=== PATIENT | female | born 1970 | race African-American/Black ===

== ENCOUNTER 2016-12-29 16:04 | Emergency (ER) | payer OTHER ==
[2016-12-29] MEDS ORDERED: ASPIRIN CHEW 81 MG TABLET PO STA (16:27)
--- NOTE | 2016-12-29 16:31 | ED Physician Documentation ---
PD HPI CHEST PAIN - Stated complaint Stated Complaint: CP/SOA - Chief complaint Chief Complaint: Cardiac - History obtained from History obtained from: Patient - History of Present Illness Timing - onset: Other (46-year-old woman without history of heart disease and no pertinent family history developed sharp chest pain while driving at 1 PM that over time became dull and briefly had numbness around the left elbow and also noted some pain on the anterior posterior side of the left knee. She is not short of breath but she feels a little out of it and dizzy. No recent travel or leg swelling. No cough or hemoptysis.) Review of Systems Constitutional: reports: Reviewed and negative Nose: reports: Reviewed and negative Cardiac: reports: Chest pain / pressure. 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 - Allergies Allergies/Adverse Reactions: Allergies Allergy/AdvReac Type Severity Reaction Status Date / Time Latex, Natural Rubber Allergy Rash Verified 12/29/16 16:12 neomycin Allergy Rash Verified 12/29/16 16:12 - Social History Does the pt smoke?: No Smoking Status: Never smoker Does the pt drink ETOH?: No Does the pt have substance abuse?: No PD ED PE NORMAL - Vitals Vital signs reviewed: Yes - General General: Alert and oriented X 3, No acute distress - HEENT HEENT: PERRL, EOMI - Neck Neck: Supple, no meningeal sign, No bony TTP, No bruit - Cardiac Cardiac: RRR, No murmur - Respiratory Respiratory: No respiratory distress, Clear bilaterally - Abdomen Abdomen: Normal bowel sounds, Soft, Non tender - Derm Derm: Normal color, Warm and dry - Extremities Extremities: No edema, No calf tenderness / cord - Neuro Neuro: Alert and oriented X 3, Normal speech - Psych Psych: Normal mood, Normal affect Results - Vitals Vitals: Vital Signs - 24 hr 12/29/16 12/29/16 12/29/16 16:08 16:25 16:31 Temperature 36.2 C L Heart Rate 70 68 72 Respiratory 18 16 16 Rate Blood Pressure 128/77 142/87 H 146/76 H O2 Saturation 99 99 98 12/29/16 12/29/16 17:05 17:44 Temperature Heart Rate 66 68 Respiratory 19 21 Rate Blood Pressure 130/75 126/58 L O2 Saturation 98 99 Oxygen O2 Source Room air - EKG (time done) 1621 Rate: Rate (enter#) (70) Rhythm: NSR [place]: Normal Intervals: Normal [place] QRS: Normal Ischemia: Non specific changes (Flat inferior T waves). No: ST elevation c/w ischemia Compare to prior EKG: Old EKG unavailable Computer interpretation: Agree with computer - Labs Labs: Laboratory Tests 12/29/16 12/29/16 12/29/16 16:37 16:37 16:37 WBC 7.9 RBC 4.11 L Hgb 11.5 L Hct 35.5 L MCV 86.4 MCH 28.1 MCHC 32.5 RDW 14.2 Plt Count 329 MPV 8.1 Neut # 3.5 Lymph # 3.3 [place] # 0.6 Eos # 0.4 Baso # 0.0 Absolute Nucleated RBC 0.00 Nucleated RBC % 0.0 D-Dimer 332.7 H Sodium 134 L Potassium 3.7 Chloride 103 Carbon Dioxide 24 Anion Gap 7.0 BUN 15 Creatinine 0.8 Estimated GFR (MDRD) 93 Glucose 91 Calcium 9.1 Total Bilirubin 0.4 AST 24 ALT 20 Alkaline Phosphatase 58 Troponin I Total Protein 7.5 Albumin 3.9 Globulin 3.6 Albumin/Globulin Ratio 1.1 Lipase 37 12/29/16 16:37 WBC RBC Hgb Hct MCV MCH MCHC RDW Plt Count MPV Neut # Lymph # [place] # Eos # Baso # Absolute Nucleated RBC Nucleated RBC % D-Dimer Sodium Potassium Chloride Carbon Dioxide Anion Gap BUN Creatinine Estimated GFR (MDRD) Glucose Calcium Total Bilirubin AST ALT Alkaline Phosphatase Troponin I < 0.04 Total Protein Albumin Globulin Albumin/Globulin Ratio Lipase PD MEDICAL DECISION MAKING - ED course ED course: 46-year-old woman with atypical chest pain, nonischemic EKG. Heart score of 1 for BMI. D-dimer slightly elevated and this was followed with a CT angiogram of the chest which was negative. The patient was counseled as to the diagnosis and need for follow-up. I counseled the patient with regard to signs and symptoms that would necessitate an urgent reevaluation in the emergency department. They understand they are welcome to return at any time if worse or if not improving as expected. This document was made in part using voice recognition software. While efforts are made to proofread this documents, sound alike and grammatical errors may occur. Departure - Departure Disposition: 01 Home, Self Care Clinical Impression: Atypical chest pain Condition: Good Record reviewed to determine appropriate education?: Yes Instructions: ED Chest Pain Atypical Unkn Cause Comments: Return immediately if worse or if new symptoms develop. Take a baby aspirin every day until you follow-up with your doctor. Do follow-up with your doctor, next available appointment, discuss stress testing.
[2016-12-29] MEDS ORDERED: SODIUM CHLORIDE FLUSH 0.9% 10 ML SYRINGE IVP ONE (16:34)
[2016-12-29 16:46] LABS: BASOPHILS % (AUTO) 0.5 %; EOSINOPHILS # (AUTO) 0.4 10^3/uL (0.0-0.7); EOSINOPHILS % (AUTO) 5.7 %; HCT - HEMATOCRIT 35.5 % (37.0-47.0); HGB - HEMOGLOBIN 11.5 g/dL (12.0-16.0); LYMPHOCYTES # (AUTO) 3.3 10^3/uL (1.5-3.5); MEAN CORPUSCULAR HEMOGLOBIN 28.1 pg (27.0-31.0); MEAN CORPUSCULAR HGB CONC 32.5 g/dL (32.0-36.0); MEAN CORPUSCULAR VOLUME 86.4 fL (81.0-99.0); MEAN PLATELET VOLUME 8.1 fL (7.9-10.8); MONOCYTES # (AUTO) 0.6 10^3/uL (0.0-1.0); MONOCYTES % (AUTO) 7.3 %; NEUTROPHILS # (AUTO) 3.5 10^3/uL (1.5-6.6); NEUTROPHILS % (AUTO) 44.5 %; RED BLOOD COUNT 4.11 10^6/uL (4.20-5.40); RED CELL DISTRIBUTION WIDTH 14.2 % (12.0-15.0); UNCORRECTED WHITE BLOOD COUNT 7.9 x10^3/uL; WHITE BLOOD COUNT 7.9 x10^3/uL (4.8-10.8)
--- NOTE | 2016-12-29 16:56 | XRAY Preliminary Report ---
Exam: XR CHEST 1 VIEW IMPRESSION: No acute disease. [facility] SITE ID: [id number]
--- NOTE | 2016-12-29 16:58 | XRAY Report ---
EXAM: CHEST RADIOGRAPHY EXAM DATE: 12/29/2016 04:48 PM. CLINICAL HISTORY: Chest pain. COMPARISON: None. TECHNIQUE: 1 view. FINDINGS: Lungs/Pleura: Clear. No effusion or pneumothorax. Mediastinum: Within exam limitations, the cardiomediastinal contour is normal. Upper lobe vessels not distended. Other: Calcific periarthritis of right shoulder. IMPRESSION: No acute disease. [facility] Referring Provider Line: [phone] SITE ID: [id number]
[2016-12-29 16:59] LABS: ALBUMIN/GLOBULIN RATIO 1.1 (1.0-2.2); BILIRUBIN,TOTAL 0.4 mg/dL (0.2-1.0); CALCIUM 9.1 mg/dL (8.5-10.3); CREATININE 0.8 mg/dL (0.4-1.0); POTASSIUM 3.7 mmol/L (3.5-5.0); TOTAL PROTEIN 7.5 g/dL (6.7-8.2)
[2016-12-29] MEDS ORDERED: ASPIRIN CHEW 81 MG TABLET ONE (17:01)
[2016-12-29] MEDS ORDERED: IOPAMIDOL-300 100 ML VIAL IVP ONE ×2 (17:10→17:31)
[2016-12-29] MEDS ORDERED: IOPAMIDOL-300 100 ML VIAL ONE (17:10)
[2016-12-29 17:45] VITALS: BP 126/58
--- NOTE | 2016-12-29 17:49 | CT Preliminary Report ---
Exam: CT CHEST ANGIO (PE) IMPRESSION: Normal pulmonary CT angiogram. No pulmonary emboli. [facility] SITE ID: [id number]
[2016-12-29] MEDS ORDERED: MAG HYDROX/AL HYDROX/SIMETH 30 ML UDC PO STA (17:53)
[2016-12-29] MEDS ORDERED: LIDOCAINE VISCOUS 2% 15 ML UDC MM STA (17:53)
[2016-12-29] MEDS ORDERED: LIDOCAINE VISCOUS 2% 15 ML UDC MM ONE (18:00)
[2016-12-29] MEDS ORDERED: MAG HYDROX/AL HYDROX/SIMETH 30 ML UDC ONE (18:00)
--- NOTE | 2016-12-29 18:12 | CT Report ---
EXAM: CT ANGIOGRAM CHEST EXAM DATE: 12/29/2016 05:31 PM. CLINICAL HISTORY: Chest pain, high d-Dimer. COMPARISON: 12/29/2016. TECHNIQUE: Routine helical imaging was performed through the chest in the pulmonary arterial phase. I V Contrast: 57 mL Isovue-300. Reconstructions: Coronal 3-D MIP reconstructions.Sagittal and coronal. In accordance with CT protocol optimization, one or more of the following dose reduction techniques w ere utilized for this exam: automated exposure control, adjustment of mA and/or KV based on patient s ize, or use of iterative reconstructive technique. FINDINGS: Pulmonary Arteries: Diagnostic quality: Adequate through the segmental arteries. No evidence for acute or chronic pulmona ry emboli. RV/LV is within normal limits. There is no interventricular septal bowing. There is no reflux of cont rast material in the IVC. Lungs/Pleura: No consolidation, nodules, or edema. No effusions or pneumothorax. Mediastinum: Normal. No cardiac enlargement or adenopathy. Thoracic Aorta: Unremarkable. Upper Abdomen: Unremarkable. Other: None. IMPRESSION: Normal pulmonary CT angiogram. No pulmonary emboli. [facility] Referring Provider Line: [phone] SITE ID: [id number]
== END 2016-12-29 18:17 | disposition home or self-care (01) ==
LOC: ED 16:04
DX: R07.89 Other chest pain (principal)
CPT/HCPCS: 36415; 71010; 71275; 80053; 83690; 84484; 85025; 85379; 93005; 99284; A9270; Q9967

== ENCOUNTER 2017-08-16 14:56 | Outpatient (CLI) | payer OTHER ==
--- NOTE | 2017-08-18 17:44 | Ultrasound Report ---
TRANSVAGINAL ULTRASOUND: 08/16/2017 HISTORY: Abnormal uterine bleeding. LAST MENSTRUAL PERIOD: 08/09/2017 TECHNIQUE: Real-time scanning by the chemical sprayer using the transvaginal approach only. Saved static images reviewed. FINDINGS UTERUS: Enlarged diffusely heterogenous myomatous changes, 12.7 x 8.8 x 9.9 cm , volume 578 mL, anteverted configuration. Endometrial echo thickness 11.5 mm. Difficult to tell if there is mass effect on the endometrium due to limited visualization. RIGHT OVARY: 3.3 x 2.2 x 2.1 cm, volume 7.9 mL. Cyst 1.5 x 1.4 x 2.1 cm. LEFT OVARY: 1.8 x 1.2 x 1.0 cm, volume 1.1 mL. Normal appearance. FREE FLUID: None. IMPRESSION: ENLARGED MYOMATOUS UTERUS, VOLUME 578 ML. ENDOMETRIAL ECHO THICKNESS 11.5 MM. DIFFICULT TO DETERMINE IF THERE IS MASS EFFECT BY FIBROIDS ON THE ENDOMETRIAL ECHO. TD: 08/16/2017 16:07 [email or web address]
== END 2017-08-16 14:57 | disposition home or self-care (01) ==
LOC: DI 14:56
PROVIDERS: ATTEND Internal Medicine
DX: N93.9 Abnormal uterine and vaginal bleeding, unspecified (principal); Z12.79 Encounter for screening for malignant neoplasm of other genitourinary organs; N85.2 Hypertrophy of uterus
CPT/HCPCS: 76830

== ENCOUNTER 2018-09-06 15:56 | Outpatient (CLI) | payer OTHER ==
--- NOTE | 2018-09-12 14:03 | Mammography Report ---
Reason: SCREEN MAMMO Procedure Date: 09/06/2018 Accession Number: [id number] / [id number] Procedure: KETAN - Screening Mammo w/Ralph CPT Code: FULL RESULT: EXAM: Screening Mammo w/Ralph DATE: 09/06/2018 4:29 PM CLINICAL HISTORY: Routine screening TECHNIQUE: (B) - Bilateral CC and MLO views were obtained. COMPARISON: 02/13/2018, 12/21/2016, 01/23/2015 and 10/22/2013. PARENCHYMAL PATTERN: (A) - The breasts demonstrate scattered fibroglandular densities bilaterally. FINDINGS: No significant interval change. There are no suspicious masses, calcifications, or areas of distortion. The right CC and left MLO projections are technically suboptimal. The patient will be recalled for [facility] medical repeat. IMPRESSION: Incomplete examination. BI-RADS category 0. Repeat right CC and left MLO projections. RECOMMENDATION: (ADDMAM) - Recommend additional mammographic views. BI-RADS CATEGORY: (0) - Incomplete Examination - need additional evaluation. STANDARD QUALIFYING STATEMENTS: 1. This examination was not reviewed with the aid of Computer-Aided Detection (CAD). 2. A negative or benign imaging report should not preclude biopsy if clinically suspicious findings are present. 3. Dense breasts may obscure an underlying neoplasm. 4. This examination was reviewed with the aid of 3D breast imaging (tomosynthesis).
== END 2018-09-06 15:57 | disposition home or self-care (01) ==
LOC: DI 15:56
PROVIDERS: ATTEND Internal Medicine
DX: Z12.31 Encounter for screening mammogram for malignant neoplasm of breast (principal)
CPT/HCPCS: 77063; 77067

== ENCOUNTER 2018-09-25 11:19 | Outpatient (CLI) | payer OTHER ==
--- NOTE | 2018-09-27 12:56 | Mammography Report ---
Reason: ROUTINE MAMMO Procedure Date: 09/25/2018 Accession Number: [id number] / [id number] Procedure: KETAN - Screening Mammo w/Ralph CPT Code: FULL RESULT: FINDINGS: IMPRESSION: For results, please reference the addended screening mammogram report from 09/06/2018.
== END 2018-09-25 11:20 | disposition home or self-care (01) ==
LOC: DI 11:19
PROVIDERS: ATTEND Internal Medicine
DX: Z12.31 Encounter for screening mammogram for malignant neoplasm of breast (principal)
CPT/HCPCS: 77063; 77067

== ENCOUNTER 2019-07-05 13:15 | Outpatient (CLI) | payer OTHER ==
[2019-07-05 18:12] LABS: ALBUMIN 4.2 g/dL (3.2-5.5); ALBUMIN/GLOBULIN RATIO 1.2 (1.0-2.2); BILIRUBIN,TOTAL 0.4 mg/dL (0.2-1.0); CALCIUM 9.3 mg/dL (8.5-10.3); CREATININE 0.6 mg/dL (0.4-1.0); TOTAL PROTEIN 7.6 g/dL (6.7-8.2)
[2019-07-05 18:27] LABS: HB2 TOTAL 13.1 g/dL; HEMOGLOBIN A1C 0.54 g/dL; HEMOGLOBIN A1C % 5.9 % (4.6-6.2)
[2019-07-05 18:43] LABS: FOLLICLE STIMULATING HORMONE 39.51 mIU/mL
[2019-07-06 06:45] LABS: ESTRADIOL 69 pg/mL
[2019-07-09 13:00] LABS: DHEA SULFATE 108 mcg/dL (19-231)
== END 2019-07-05 23:59 | disposition home or self-care (01) ==
LOC: LAB.WCP 13:15
PROVIDERS: ATTEND Obstetrics & Gynecology
DX: D64.9 Anemia, unspecified (principal); R53.83 Other fatigue; L68.0 Hirsutism; N92.6 Irregular menstruation, unspecified; I10 Essential (primary) hypertension; F52.0 Hypoactive sexual desire disorder; N95.1 Menopausal and female climacteric states; R63.5 Abnormal weight gain
CPT/HCPCS: 36415; 80053; 82306; 82627; 82670; 83001; 83036; 83540; 84403; 84443; 84466

== ENCOUNTER 2019-08-16 17:32 | Outpatient (CLI) | payer OTHER ==
--- NOTE | 2019-08-17 09:43 | Ultrasound Report ---
Reason: IRREGULAR MENSES,FIBROIDS Procedure Date: 08/16/2019 Accession Number: [id number] / [id number] Procedure: US - Pelvic w/Transvaginal CPT Code: Final Report FULL RESULT: PROCEDURE: Pelvic w/Transvaginal INDICATIONS: IRREGULAR MENSES,FIBROIDS TECHNIQUE: Real-time scanning was performed of the pelvic organs, with image documentation. Additional endovaginal scanning was necessary due to incomplete visualization of the adnexal and endometrial structures by transabdominal scanning. COMPARISON: Ultrasound pelvis 08/16/2017. FINDINGS: Transabdominal scanning: Limited scanning through the kidneys shows no hydronephrosis. No pathologic free abdominal or pelvic fluid. Endovaginal scanning: Uterus: Uterus is normal in size at 15.2 x 7.6 x 10.8 cm. The endometrium measures 4 mm in combined thickness. The uterus demonstrates a diffuse appearance of myomatous change with innumerable foci of heterotopic echogenicity, with many appearing confluent. Uterine volume on current exam measures 652cc compared to 578 cc in 2018. Ovaries: Right ovary measures 22 x 12 x 25 mm. Left ovary is not visualized. IMPRESSION: Diffuse, myomatous change within the uterus, with mild increased total uterine volume compared to 2018. Reviewed by: Fela Fuller MD on 08/17/2019 9:42 AM PDT Approved by: Fela Fuller MD on 08/17/2019 9:42 AM PDT Station ID: [id number]
== END 2019-08-16 17:33 | disposition home or self-care (01) ==
LOC: DI 17:32
PROVIDERS: ATTEND Obstetrics & Gynecology
DX: D25.9 Leiomyoma of uterus, unspecified (principal)
CPT/HCPCS: 76830; 76856

== ENCOUNTER 2020-06-09 13:54 | Emergency (ER) | payer OTHER ==
--- NOTE | 2020-06-09 14:15 | XRAY Report ---
PROCEDURE: Chest 1 View X-Ray INDICATIONS: Chest Pain TECHNIQUE: One view of the chest was acquired. COMPARISON: CT chest angiogram 12/28. FINDINGS: Surgical changes and devices: None. Lungs and pleura: No pleural effusions or pneumothorax. Lungs are clear. Mediastinum: Mediastinal contours appear normal. Heart size is normal. Bones and chest wall: No suspicious bony lesions. Overlying soft tissues appear unremarkable. IMPRESSION: Considering body habitus and reduced inspiration no definite alveolar edema is suspected and no pneum onia is found. Source of chest pain is not found. Reviewed by: Chip De La Torre MD on 06/09/2020 2:13 PM PDT Approved by: Chip De La Torre MD on 06/09/2020 2:13 PM PDT Station ID: [id number]
[2020-06-09 14:28] LABS: BASOPHILS % (AUTO) 0.3 %; EOSINOPHILS # (AUTO) 0.2 10^3/uL (0.0-0.7); EOSINOPHILS % (AUTO) 2.8 %; HCT - HEMATOCRIT 39.5 % (37.0-47.0); HGB - HEMOGLOBIN 13.1 g/dL (12.0-16.0); LYMPHOCYTES # (AUTO) 3.2 10^3/uL (1.5-3.5); LYMPHOCYTES % (AUTO) 48.6 %; MEAN CORPUSCULAR HEMOGLOBIN 29.1 pg (27.0-31.0); MEAN CORPUSCULAR HGB CONC 33.2 g/dL (32.0-36.0); MEAN CORPUSCULAR VOLUME 87.8 fL (81.0-99.0); MEAN PLATELET VOLUME 10.6 fL (7.9-10.8); MONOCYTES # (AUTO) 0.4 10^3/uL (0.0-1.0); MONOCYTES % (AUTO) 5.7 %; NEUTROPHILS # (AUTO) 2.8 10^3/uL (1.5-6.6); NEUTROPHILS % (AUTO) 42.4 %; PLT - PLATELET COUNT 319 10^3/uL (130-450); RED CELL DISTRIBUTION WIDTH 12.8 % (12.0-15.0); WHITE BLOOD COUNT 6.5 x10^3/uL (4.8-10.8)
[2020-06-09] MEDS ORDERED: ASPIRIN 325 MG TABLET PO STA (14:32)
[2020-06-09 14:38] LABS: ALBUMIN 4.3 g/dL (3.2-5.5); ALBUMIN/GLOBULIN RATIO 1.1 (1.0-2.2); BILIRUBIN,TOTAL 0.4 mg/dL (0.2-1.0); CALCIUM 10.1 mg/dL (8.5-10.3); CREATININE 0.7 mg/dL (0.4-1.0); POTASSIUM 3.8 mmol/L (3.5-5.0); TOTAL PROTEIN 8.1 g/dL (6.7-8.2)
[2020-06-09] MEDS ORDERED: ASPIRIN CHEW 81 MG TABLET PO STA (14:45)
--- NOTE | 2020-06-09 15:22 | ED Physician Documentation ---
PD HPI CHEST PAIN - Stated complaint Stated Complaint: CHEST PX - Chief complaint Chief Complaint: Cardiac - History obtained from History obtained from: Patient - Additional information Additional information: 49yF with pmh sciatica, nonsmoker, p/w intermittent mid chest pain quality described as "heaviness" over past 2 weeks radiating to back a/w nausea but no vomiting. also endorses anxiety and sciatica symptoms. worse with position changes, better with staying completely still. nonpleuritic. denies fever, sob leg swelling, cough. Review of Systems Ten Systems: 10 systems reviewed and negative Constitutional: denies: Fever GI: reports: Nausea. 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 - Allergies Allergies/Adverse Reactions: Allergies Allergy/AdvReac Type Severity Reaction Status Date / Time Latex, Natural Rubber Allergy Rash Verified 06/09/20 14:05 neomycin Allergy Rash Verified 06/09/20 14:05 - Social History Does the pt smoke?: No Smoking Status: Never smoker Does the pt drink ETOH?: No Does the pt have substance abuse?: No PD ED PE NORMAL - Vitals Vital signs reviewed: Yes - General General: Alert and oriented X 3, No acute distress, Well developed/nourished - HEENT HEENT: Atraumatic, PERRL, EOMI - Neck Neck: Supple, no meningeal sign - Cardiac Cardiac: RRR, No murmur - Respiratory Respiratory: No respiratory distress, Clear bilaterally - Abdomen Abdomen: Non tender, Non distended - Derm Derm: Normal color - Extremities Extremities: No edema - Neuro Neuro: Alert and oriented X 3 - Psych Psych: Normal mood, Normal affect Results - Vitals Vitals: Oxygen O2 Source Room air - Labs Labs: Laboratory Tests 06/09/20 06/09/20 06/09/20 14:12 14:12 14:12 WBC 6.5 RBC 4.50 Hgb 13.1 Hct 39.5 MCV 87.8 MCH 29.1 MCHC 33.2 RDW 12.8 Plt Count 319 MPV 10.6 Neut # (Auto) 2.8 Lymph # (Auto) 3.2 [place] # (Auto) 0.4 Eos # (Auto) 0.2 Baso # (Auto) 0.0 Absolute Nucleated RBC 0.00 Nucleated RBC % 0.0 Sodium 139 Potassium 3.8 Chloride 101 Carbon Dioxide 24 Anion Gap 14.0 H BUN 16 Creatinine 0.7 Estimated GFR (MDRD) 107 Glucose 105 H Calcium 10.1 Total Bilirubin 0.4 AST 21 ALT 18 Alkaline Phosphatase 88 Troponin I High Sens 3.1 Total Protein 8.1 Albumin 4.3 Globulin 3.8 Albumin/Globulin Ratio 1.1 Lipase 36 PD MEDICAL DECISION MAKING - ED course ED course: 49-year-old woman presents with atypical chest pain, unremarkable labs, EKG, chest x-ray. Heart score 2 (age, risk factor). Patient had improvement of her chest pain in the emergency department with resolution here. She states she has been anxious relating to her recently having surgery. Strict return precautions given. Plan to follow-up with her primary doctor this week. Departure - Departure Disposition: 01 Home, Self Care Clinical Impression: Chest wall pain Condition: Good Instructions: ED Chest Pain Atypical Unkn Cause Comments: You were seen in the emergency department for chest pain that is positional. Your chest x-ray, EKG, and lab work did not have any concerning findings and your vital signs were normal on the monitor here in the emergency department. You did have An increased blood pressure readings he should have that rechecked by your primary doctor this week. Please get lots of rest and Return to the emergency department if you develop any new or worsening symptoms or other concerns. Forms: Activity restrictions Discharge Date/Time: 06/09/20 15:36
[2020-06-09 15:28] VITALS: BP 129/70
== END 2020-06-09 15:36 | disposition home or self-care (01) ==
LOC: ED 13:54
DX: R07.89 Other chest pain (principal); R03.0 Elevated blood-pressure reading, without diagnosis of hypertension
CPT/HCPCS: 36415; 71045; 80053; 83690; 84484; 85025; 93005; 99284; A9270

== ENCOUNTER 2021-04-15 19:04 | Emergency (ER) | payer OTHER ==
--- NOTE | 2021-04-15 19:38 | ED Physician Documentation ---
PD HPI HEADACHE - Stated complaint Stated Complaint: LT EYE PX/SENSITIVE/HEADACHE - Chief complaint Chief Complaint: Neuro - Additional information Additional information: Patient is a 50-year-old female past medical significant for prediabetes, obesity, migraine headache disorder presenting to the emergency department with left eye pain as well as having a discrete episode of "chest heartburn" and dizziness earlier today. Reports feeling generally unwell for the last few days. States has had left-sided eye pain as well. Denies any trauma to the eye. Denies any use of bifocals or contact lenses. Denies any visual disturbance. States today while at a grocery store she had an episode of heartburn which was associated with dizziness and lightheadedness. Endorses for history of prediabetes but denies any true history hypertension, dyslipidemia, CAD, significant smoking history or significant family history of coronary artery disease. Review of Systems Ten Systems: 10 systems reviewed and negative Constitutional: denies: Fever Eyes: reports: Other (Pos left eye pain). denies: Loss of vision, Decreased vision Ears: denies: Loss of hearing Nose: denies: Rhinorrhea / runny nose Throat: denies: Dental pain / toothache Cardiac: reports: Other. 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 - Present Medications Home Medications: Ambulatory Orders Medication Instructions Recorded Confirmed Cetirizine [ZyrTEC] 10 mg PO DAILY #30 tablet 04/15/21 - Allergies Allergies/Adverse Reactions: Allergies Allergy/AdvReac Type Severity Reaction Status Date / Time Latex, Natural Rubber Allergy Rash Verified 04/15/21 19:14 neomycin Allergy Rash Verified 04/15/21 19:14 - Social History Does the pt smoke?: No Smoking Status: Never smoker Does the pt drink ETOH?: No Does the pt have substance abuse?: No PD ED PE NORMAL - General General: Alert and oriented X 3 - HEENT HEENT: Atraumatic - Neck Neck: Supple, no meningeal sign - Cardiac Cardiac: RRR - Respiratory Respiratory: No respiratory distress - Abdomen Abdomen: Normal bowel sounds - Female Female : Deferred - Rectal Rectal: Deferred - Derm Derm: Normal color - Extremities Extremities: No deformity - Neuro Neuro: Alert and oriented X 3 PD ED PE EXPANDED - HEENT HEENT: Atraumatic, PERRL, EOMI, Other (Fluorescein exam negative, intraocular pressure of left eye average of three measurements 14.9, ultrasonography of the eye negative for hemorrhage, retinal abnormality, enlarged optic nerve.). No: Gaze palsy, Scleral icterus, Right frontal sinus TTP, Left frontal sinus TTP, Right maxillary sinus TTP, Nasal congestion, Rhinorrhea Results - Vitals Vitals: Vital Signs - 24 hr 04/15/21 04/15/21 19:10 19:56 Temperature 36.2 C L Heart Rate 82 73 Respiratory 16 20 Rate Blood Pressure 167/70 H 152/80 H O2 Saturation 100 100 Oxygen O2 Source Room air - EKG (time done) 1940 Rate: Rate (enter#) (74) Rhythm: NSR [place]: Normal Intervals: Normal [place] QRS: Normal Ischemia: Normal ST segments. No: Hyperacute T waves Compare to prior EKG: Unchanged from prior EKG Computer interpretation: Agree with computer - Labs Labs: Laboratory Tests 04/15/21 04/15/21 04/15/21 19:50 19:50 19:50 WBC 8.1 RBC 4.30 Hgb 12.4 Hct 37.7 MCV 87.7 MCH 28.8 MCHC 32.9 RDW 13.2 Plt Count 296 MPV 10.1 Neut # (Auto) 3.5 Lymph # (Auto) 3.6 H [place] # (Auto) 0.6 Eos # (Auto) 0.4 Baso # (Auto) 0.0 Absolute Nucleated RBC 0.00 Nucleated RBC % 0.0 Sodium 134 L Potassium 3.7 Chloride 100 L Carbon Dioxide 26 Anion Gap 8.0 BUN 14 Creatinine 0.6 Estimated GFR (MDRD) 128 Glucose 89 Calcium 9.7 Total Bilirubin 0.8 AST 18 ALT 16 Alkaline Phosphatase 86 Troponin I High Sens 3.1 Total Protein 7.5 Albumin 4.0 Globulin 3.5 Albumin/Globulin Ratio 1.1 PD MEDICAL DECISION MAKING - ED course Complexity details: reviewed results, d/w patient ED course: Patient is a 50-year-old female presenting to the emergency department left eye pain as well as episode of what she described as "heartburn" and dizziness earlier this evening. Afebrile, hemodynamically stable on arrival to the emergency department. EKG as outlined above negative for indications of acute cardiac ischemia or dysrhythmia. Labs obtained within normal limits are nonactionable. Troponin negative. Visual acuity to the left eye unchanged. Fluorescein exam negative. Extraocular motion intact. Pupils equal and reactive. Intraocular pressures were measured with average of three measurements 14.9, ultrasonography of the eye negative for any abnormalities of the retina or vitreous. Will initiate course of oral and nasal decongestants as I pressure possibly secondary to sinusitis. The fact that the patient's vision is unchanged is reassuring as this makes trauma to the eye, optic neuritis, Giant cell arteritis unlikely. Will encourage careful follow-up with primary care. Otherwise clear return precautions and follow-up instructions were given prior to discharge. Departure - Departure Disposition: 01 Home, Self Care Clinical Impression: Dizziness Eye pain Qualifiers: Laterality: left Qualified Code(s): H57.12 - Ocular pain, left eye Prescriptions: Cetirizine [ZyrTEC] 10 mg PO DAILY #30 tablet
[2021-04-15] MEDS: PROPARACAINE 0.5% OPHTH DROPS 15 ML EACHEYE STA (19:50)
[2021-04-15 19:56] LABS: BASOPHILS % (AUTO) 0.4 %; EOSINOPHILS # (AUTO) 0.4 10^3/uL (0.0-0.7); EOSINOPHILS % (AUTO) 4.8 %; HCT - HEMATOCRIT 37.7 % (37.0-47.0); HGB - HEMOGLOBIN 12.4 g/dL (12.0-16.0); LYMPHOCYTES # (AUTO) 3.6 10^3/uL (1.5-3.5); LYMPHOCYTES % (AUTO) 44.3 %; MEAN CORPUSCULAR HEMOGLOBIN 28.8 pg (27.0-31.0); MEAN CORPUSCULAR HGB CONC 32.9 g/dL (32.0-36.0); MEAN CORPUSCULAR VOLUME 87.7 fL (81.0-99.0); MEAN PLATELET VOLUME 10.1 fL (7.9-10.8); MONOCYTES # (AUTO) 0.6 10^3/uL (0.0-1.0); MONOCYTES % (AUTO) 7.1 %; NEUTROPHILS # (AUTO) 3.5 10^3/uL (1.5-6.6); PLT - PLATELET COUNT 296 10^3/uL (130-450); RED CELL DISTRIBUTION WIDTH 13.2 % (12.0-15.0); WHITE BLOOD COUNT 8.1 x10^3/uL (4.8-10.8)
[2021-04-15 20:08] LABS: ALBUMIN/GLOBULIN RATIO 1.1 (1.0-2.2); BILIRUBIN,TOTAL 0.8 mg/dL (0.2-1.0); CALCIUM 9.7 mg/dL (8.5-10.3); CREATININE 0.6 mg/dL (0.4-1.0); POTASSIUM 3.7 mmol/L (3.5-5.0); TOTAL PROTEIN 7.5 g/dL (6.7-8.2)
[2021-04-15 20:49] VITALS: BP 156/82
== END 2021-04-15 20:49 | disposition home or self-care (01) ==
LOC: ED 19:04
DX: R42 Dizziness and giddiness (principal); H57.12 Ocular pain, left eye
CPT/HCPCS: 36415; 80053; 84484; 85025; 93005; 99283; J3490

== ENCOUNTER 2021-05-27 07:52 | Outpatient (CLI) | payer OTHER ==
[2021-05-27] MEDS ORDERED: GADOBUTROL 10 MMOL/10 ML VIAL ONE (08:20)
--- NOTE | 2021-05-27 16:25 | MRI Report ---
PROCEDURE: Pelvis W/WO INDICATIONS: ABN UTERINE BLEED CONTRAST: IV CONTRAST: Gadavist ml: 8.6 TECHNIQUE: Coronal ultra fast SE, sagittal breath-hold T2 FSE; axial T1 FSE with and without fat saturation thro ugh the pelvis. Optional long- and short-axis uterine nonbreath-hold T2 FSE through the uterus. Sag ittal or axial dynamic ultra fast GE during administration of contrast. Post-contrast axial or coron al ultra fast GE / 2-D spoiled GE with fat saturation from the iliac crests to the symphysis. Option al diffusion weighted imaging and ADC may be performed. COMPARISON: Ultrasound pelvis 08/16/2019. FINDINGS: Image quality: There is motion artifact slightly limiting evaluation. Uterus: There is prominent enlargement and lobulated contour of the uterus with numerous uterine fibr oids redemonstrated. The majority of the fibroids are intramural in location with a few small fibroid s demonstrating apparent some mucosal extension. There are also a few small exophytic subserosal fibr oids. A sales representative supervisor intramural fibroid within the right fundal myometrium measures up to 4.1 x 3.3 x 3.4 cm. Endometrium is normal in thickness. Junctional zone is normal in overall thickness at 12 mm or less with areas of effacement secondary to adjacent fibroids. There are a few small nabothian c ysts in the cervix. Adnexa: The ovaries appear within normal size limits without cystic or solid adnexal masses identifie d. Urinary system: The bladder is partially distended. Bladder wall is normal in thickness. Distal uret ers are non distended. Urethra appears normal in morphology. Nodes and vessels: No pelvic or inguinal adenopathy by size criteria. Iliac vessels are normal in s ize. Bowel and peritoneum: No pathologic free pelvic fluid. Inferior colon and small bowel loops are nor mal in caliber. Soft tissues: No inguinal hernias. Bones: Marrow demonstrates normal overall signal. IMPRESSION: 1. Enlarged lobulated uterus with numerous uterine fibroids demonstrated as described. These include a few small submucosal fibroids as well as a few small subserosal exophytic fibroids. 2. No adnexal masses. Reviewed by: Fahad Hernandez MD on 05/27/2021 4:24 PM PDT Approved by: Fahad Hernandez MD on 05/27/2021 4:24 PM PDT Station ID: [id number]
[2021-05-27] MEDS ORDERED: GADOBUTROL 10 MMOL/10 ML VIAL IVP ONE (17:08)
== END 2021-05-27 07:53 | disposition home or self-care (01) ==
LOC: DI 07:52
PROVIDERS: ATTEND Nurse Practitioner Family
DX: N93.9 Abnormal uterine and vaginal bleeding, unspecified (principal); N85.2 Hypertrophy of uterus; D25.1 Intramural leiomyoma of uterus; D25.2 Subserosal leiomyoma of uterus
CPT/HCPCS: 72197; A9585

== ENCOUNTER 2021-12-04 12:16 | Outpatient (CLI) | payer OTHER ==
--- NOTE | 2021-12-07 09:00 | Mammography Report ---
BILATERAL DIGITAL SCREENING MAMMOGRAM 3D/2D: 12/04/2021 CLINICAL: Routine screening. Comparison is made to exams dated: 09/25/2018 mammogram, 09/06/2018 mammogram - [facility], and 02/13/2018 mammogram - [facility]. There are scattered areas of fibroglandular density in both breasts (category b / 25%-50% glandular t issue). No significant masses, calcifications, or other findings are seen in either breast. There has been no significant interval change. IMPRESSION: NEGATIVE There is no mammographic evidence of malignancy. A 1 year screening mammogram is recommended. This exam was interpreted at Station ID: [id number]. NOTE: For mammograms, a report in lay terms will be sent to the patient. Approximately 15% of breast malignancies will not be visualized mammographically. In the management of a palpable breast mass, a negative mammogram must not discourage biopsy of a clinically suspicious lesion. Electronically Signed By: Soy Irizarry acr/penrad:12/04/2021 17:08:01 ACR BI-RADS Category 1: Negative 3341F PARENCHYMAL PATTERN: (A) - The breast(s) demonstrate(s) scattered fibroglandular densities. BI-RADS CATEGORY: (1) - 1 RECOMMENDATION: (ANNUAL) - Recommend routine annual screening mammography. [id number] 1 year screening LATERALITY: (B)
== END 2021-12-04 12:17 | disposition home or self-care (01) ==
LOC: DI 12:16
PROVIDERS: ATTEND Internal Medicine
DX: Z12.31 Encounter for screening mammogram for malignant neoplasm of breast (principal)

== ENCOUNTER 2022-12-14 15:04 | Outpatient (CLI) | payer OTHER ==
--- NOTE | 2022-12-15 13:24 | Mammography Report ---
BILATERAL DIGITAL SCREENING MAMMOGRAM 3D/2D: 12/14/2022 CLINICAL: Routine screening. Comparison is made to exams dated: 09/25/2018 mammogram, 12/04/2021 mammogram, 09/06/2018 mammogram - [facility], and 02/13/2018 mammogram - [facility]. There are scattered areas of fibroglandular density in both breasts (category b / 25%-50% glandular t issue). There is a stable benign focal asymmetry in the left breast. No significant masses, calcifications, or other findings are seen in either breast. There has been no significant interval change. IMPRESSION: BENIGN There is no mammographic evidence of malignancy. A 1 year screening mammogram is recommended. Based on the Tyrer Cuzick model (a risk assessment model) the patients lifetime risk is 19.2% and he r 10 year risk is 5.4%. According to the ACR, ACS, and NCCN guidelines, an annual breast MRI exam chad ng with mammogram is recommended if the patients lifetime risk is 20% or greater. This exam was interpreted at Station ID: [id number]. NOTE: For mammograms, a report in lay terms will be sent to the patient. Approximately 15% of breast malignancies will not be visualized mammographically. In the management of a palpable breast mass, a negative mammogram must not discourage biopsy of a clinically suspicious lesion. Electronically Signed By: Soy butler/palak:12/15/2022 08:16:53 letter sent: No_Letter ACR BI-RADS Category 2: Benign Finding(s) 3342F PARENCHYMAL PATTERN: (A) - The breast(s) demonstrate(s) scattered fibroglandular densities. BI-RADS CATEGORY: (2) - 2 Mammogram [id number] 1 year screening LATERALITY: (B)
== END 2022-12-14 15:05 | disposition home or self-care (01) ==
LOC: DI 15:04
PROVIDERS: ATTEND Registered Nurse
DX: Z12.31 Encounter for screening mammogram for malignant neoplasm of breast (principal)

== ENCOUNTER 2023-07-24 04:46 | Emergency (ER) | payer OTHER ==
[2023-07-24] MEDS: DEXAMETHASONE 10 MG/ML VIAL IVP STA (05:15)
[2023-07-24] MEDS: diphenhydrAMINE INJ 50 MG/ML VIAL IVP STA (05:15)
[2023-07-24] MEDS: FAMOTIDINE 20 MG/2 ML VIAL IVP STA (05:15)
[2023-07-24] MEDS: methylPREDNISolone SUCCINATE 125 MG/2 ML VIAL IVP STA (06:37)
--- NOTE | 2023-07-24 06:59 | ED Physician Documentation ---
PD HPI SKIN - Stated complaint Stated Complaint: FACE SWELLING/REACTION - Chief complaint Chief Complaint: Allergic Rx - History obtained from History obtained from: Patient - Additional information Additional information: 52-year-old female presents for evaluation of facial swelling. On Tuesday she went to get a chemical peel. The next day she noticed some skin irritation which she was told was normal. She states that one of the wipes that she is supposed to use after the peel had hydrocortisone and it, which she is allergic to the topical versions of this medication. Her face continued to swell and she noticed swelling around her eyes, which concerned her. Denies tongue swelling, difficulty breathing, nausea, vomiting, other complaints at this time. Review of Systems Constitutional: denies: Fever, Chills Respiratory: denies: Dyspnea, Cough, Wheezing GI: denies: Abdominal Pain, Nausea, Vomiting Skin: reports: Rash. denies: Lesions, Abrasion (s), Laceration (s) Musculoskeletal: denies: Neck pain, Back pain, Extremity pain PD PAST MEDICAL HISTORY - Past Medical History Cardiovascular: None Respiratory: None Endocrine/Autoimmune: None GI: None MAP PLOTTER: Endometriosis : None HEENT: None Psych: None Musculoskeletal: None Derm: None - Past Surgical History Past Surgical History: Yes General: Appendectomy /MAP PLOTTER: section - Present Medications Home Medications: Ambulatory Orders Medication Instructions Recorded Confirmed Cetirizine [ZyrTEC] 10 mg PO DAILY #30 tablet 04/15/21 Fluticasone [Flonase] 1 sprays PIA BID PRN #1 bottle 04/15/21 Oxymetazoline HCl [Afrin] 1 spray PIA Q6HR #30 ml 04/15/21 predniSONE [Deltasone] 40 mg PO DAILY 5 Days #10 tablet 07/24/23 - Allergies Allergies/Adverse Reactions: Allergies Allergy/AdvReac Type Severity Reaction Status Date / Time cortisone Allergy Rash Verified 07/24/23 04:59 Latex, Natural Rubber Allergy Rash Verified 07/24/23 05:00 neomycin Allergy Rash Verified 07/24/23 05:00 - Social History Does the pt smoke?: No Smoking Status: Never smoker Does the pt drink ETOH?: No Does the pt have substance abuse?: No PD ED PE NORMAL - Vitals Vital signs reviewed: Yes - General General: Alert and oriented X 3, No acute distress, Well developed/nourished - HEENT HEENT: PERRL, EOMI - Neck Neck: Supple, no meningeal sign - Cardiac Cardiac: RRR, Strong equal pulses - Respiratory Respiratory: No respiratory distress, Clear bilaterally - Derm Derm: Other (Erythema and swelling of face. Urticarial lesions noted on cheeks and neck) - Neuro Neuro: Alert and oriented X 3, quality facilitator 2-12 intact, No motor deficit, Normal speech Results - Vitals Vitals: Vital Signs - 24 hr 07/24/23 07/24/23 07/24/23 04:55 04:59 05:59 Temperature 36.9 C Heart Rate 82 87 88 Respiratory 18 18 18 Rate Blood Pressure 188/101 H 86/38 L 116/101 H O2 Saturation 100 95 96 If not protocol 4 4 : Oxygen Flow, liters/minute Oxygen O2 Source Nasal cannula PD Medical Decision Making - ED course Complexity details: reviewed results, re-evaluated patient, considered differential, d/w patient ED course: Allergic reaction to facial peel, possible topical cortisone. No anaphylaxis at this time, airway is patent, no difficulty breathing, vital signs normal. Patient reports allergy to topical cortisol, but has received steroid injections in her joints before. Decadron ordered. No significant improvement with IV medications, however she does seem to have slightly less swelling around her eyes. Patient counseled on management of allergic reaction, instructed to continue to take Benadryl. Will send home with several day course of steroids. ED return precautions discussed at bedside. Departure - Departure Disposition: 01 Home, Self Care Clinical Impression: Contact dermatitis Condition: Stable Instructions: ED Drug React Adverse Other Prescriptions: predniSONE [Deltasone] 40 mg PO DAILY 5 Days #10 tablet Comments: Continue to take Benadryl for itching and irritation. Take the steroids as prescribed. You should notice gradual improvement in your facial swelling and eye swelling. If you notice trouble breathing, tongue swelling, or you do not improve despite the steroids please return for evaluation. Rx sent to [facility] in [place] Forms: PCP List
[2023-07-24 07:11] VITALS: BP 194/93; O2SAT 99
== END 2023-07-24 07:09 | disposition home or self-care (01) ==
LOC: ED 04:46
DX: L24.5 Irritant contact dermatitis due to other chemical products (principal)
CPT/HCPCS: 96374; 96375; 99283; J1200

== ENCOUNTER 2023-08-11 12:52 | Outpatient (CLI) | payer OTHER | END 2023-08-11 12:53 | disposition home or self-care (01) | LOC: CAM 12:52 | PROVIDERS: ATTEND Registered Nurse | DX: G89.29 Other chronic pain (principal) | CPT/HCPCS: 97810; 97811 ==

== ENCOUNTER 2023-08-18 08:14 | Outpatient (CLI) | payer OTHER | END 2023-08-18 08:15 | disposition home or self-care (01) | LOC: CAM 08:14 | PROVIDERS: ATTEND Registered Nurse | DX: G89.29 Other chronic pain (principal) | CPT/HCPCS: 97810; 97811 ==

== ENCOUNTER 2023-08-23 08:19 | Outpatient (CLI) | payer OTHER | END 2023-08-23 08:20 | disposition home or self-care (01) | LOC: CAM 08:19 | PROVIDERS: ATTEND Registered Nurse | DX: G89.29 Other chronic pain (principal) | CPT/HCPCS: 97810; 97811 ==

== ENCOUNTER 2023-09-27 09:26 | Outpatient (CLI) | payer OTHER | END 2023-09-27 09:27 | disposition home or self-care (01) | LOC: CAM 09:26 | PROVIDERS: ATTEND Registered Nurse | DX: G89.29 Other chronic pain (principal) | CPT/HCPCS: 97810; 97811 ==

== ENCOUNTER 2023-10-04 08:16 | Outpatient (CLI) | payer OTHER | END 2023-10-04 08:17 | disposition home or self-care (01) | LOC: CAM 08:16 | PROVIDERS: ATTEND Registered Nurse | DX: G89.29 Other chronic pain (principal) | CPT/HCPCS: 97810; 97811 ==

== ENCOUNTER 2023-10-11 09:32 | Outpatient (CLI) | payer OTHER | END 2023-10-11 09:33 | disposition home or self-care (01) | LOC: CAM 09:32 | PROVIDERS: ATTEND Registered Nurse | DX: G89.29 Other chronic pain (principal) | CPT/HCPCS: 97810; 97811 ==